=== PATIENT | female | born 1950 | race Caucasian/White ===

== ENCOUNTER 2020-01-12 10:22 | Outpatient (REF) | payer MEDICARE, SELFPAY | END 2020-01-12 10:42 | LOC: LBN 10:22 | PROVIDERS: Visit Provider Physician Assistant | DX: N39.0 Urinary tract infection, site not specified (principal) | CPT/HCPCS: 87077; 87086; 87186 ==

== ENCOUNTER 2021-08-27 17:05 | Outpatient (REF) | payer MEDICARE, SELFPAY | END 2021-08-27 17:06 | disposition home or self-care (01) | LOC: LBN 17:05 | PROVIDERS: Visit Provider Family Medicine | DX: R31.9 Hematuria, unspecified (principal) | CPT/HCPCS: 87086 ==

== ENCOUNTER 2022-11-27 00:30 | Outpatient (CLI) | payer MEDICARE, SELFPAY ==
--- NOTE | 2022-11-27 06:30 | DI.RAD_ITS ---
Exam(s) XR KNEE LT 3V AP,LAT,GILL EXAM: XR KNEE LT 3V AP,LAT,GILL CLINICAL HISTORY: increasing lt knee pain, m25.562. TECHNIQUE: 2D digital imaging was performed. Three views. COMPARISON: No exams were available for comparison FINDINGS: BONES: No acute fracture is present. No bony destructive lesion is seen. Enthesophyte superior mayank e of the patella. JOINTS: The knee is normally aligned. No joint effusion is seen. Joint spaces are maintained. Mini mal periarticular spurring. SOFT TISSUE: Medial varicosities. IMPRESSION: Mild degenerative changes. DATA REPOSITORY: RADIATION DOSE DELIVERED:
== END 2022-11-27 00:50 ==
LOC: DI 00:31
PROVIDERS: PCP Nurse Practitioner Family; Visit Provider Nurse Practitioner Family
DX: M17.12 Unilateral primary osteoarthritis, left knee (principal)
CPT/HCPCS: 73562

== ENCOUNTER 2023-07-06 04:49 | Outpatient (CLI) | payer MEDICARE, SELFPAY ==
[2023-07-06 12:52] LABS: ALT 32 U/L (14-59); AST 19 U/L (15-37); Albumin 3.4 g/dL (3.4-5.0); Alkaline Phosphatase 107 U/L (46-116); Anion Gap 4.1 mmol/L (3-11); BUN 18 mg/dL (7-18); Bilirubin, Total 0.5 mg/dL (0.2-1.0); CO2 32.9 mmol/L (21.0-32.0); CREATININE 0.8 mg/dL (0.55-1.02); Calcium 9.6 mg/dL (8.5-10.1); Calculated LDL 105 mg/dL (<100); Chloride 103 mmol/L (98-107); Cholesterol 179 mg/dL (<200); Estimated GFR 76.79 (mL/min/1.73m2); Glucose 103 mg/dL (74-106); HDL Cholesterol 56 mg/dL (40-60); Potassium 3.3 mmol/L (3.5-5.1); Sodium 140 mmol/L (136-145); Total Protein 7.7 g/dL (6.4-8.2); Triglyceride 93 mg/dL (<150)
== END 2023-07-06 04:50 | disposition home or self-care (01) ==
LOC: LOS 04:49
PROVIDERS: PCP Nurse Practitioner Family; Visit Provider Nurse Practitioner Family
DX: E78.2 Mixed hyperlipidemia (principal)
CPT/HCPCS: 36415; 80053; 80061

== ENCOUNTER → 2023-08-02 04:18 | Outpatient (CLI) | payer MEDICARE, SELFPAY ==
--- NOTE | 2023-08-02 08:30 | DI.DEXA_ITS ---
Exam(s) XR DEXA BONE DENSITY W/WO SANDRINE EXAM: XR DEXA BONE DENSITY W/WO SANDRINE CLINICAL HISTORY: screening for osteoporosis, POSTMENOPAUSAL STATUS, Z78.0 TECHNIQUE: COMPARISON: No exams were available for comparison FINDINGS: Lateral Spine Image: Unremarkable. No compression deformities identified. Left hip: Total T-Score: -1.4 Total Z-Score: 0.4 T- and Z-scores: Findings are consistent with osteopenia. Lumbar Spine: Total T-Score: -1.4 Total Z-Score: 1.1 T- and Z-scores: Findings are consistent with osteopenia. There is osteoporosis in the left forearm with a total T-score of -3.0 and a Z-score of -0.5. IMPRESSION: Osteoporosis in the left forearm.
== END ==
PROVIDERS: PCP Nurse Practitioner Family; Visit Provider Nurse Practitioner Family
DX: Z78.0 Asymptomatic menopausal state (principal); Z13.820 Encounter for screening for osteoporosis
CPT/HCPCS: 77080

== ENCOUNTER 2023-08-27 11:48 | Outpatient (REF) | payer MEDICARE, SELFPAY ==
[2023-08-27 14:07] LABS: Potassium 3.6 mmol/L (3.5-5.1)
== END 2023-08-27 11:49 | disposition home or self-care (01) ==
LOC: LBN 11:48
PROVIDERS: PCP Nurse Practitioner Family; Visit Provider Nurse Practitioner Family
DX: E87.6 Hypokalemia (principal)
CPT/HCPCS: 84132

== ENCOUNTER 2024-07-04 21:04 | Outpatient (REF) | payer MEDICARE, SELFPAY ==
[2024-07-04 21:44] LABS: ALT 45 U/L (14-59); AST 25 U/L (15-37); Albumin 3.7 g/dL (3.4-5.0); Alkaline Phosphatase 146 U/L (46-116); Anion Gap 9.6 mmol/L (3-11); BUN 24 mg/dL (7-18); Bilirubin, Total 0.46 mg/dL (0.2-1.0); CO2 27.4 mmol/L (21.0-32.0); CREATININE 0.9 mg/dL (0.55-1.02); Calcium 9.7 mg/dL (8.5-10.1); Calculated LDL 120 mg/dL (<100); Chloride 100 mmol/L (98-107); Cholesterol 204 mg/dL (<200); Estimated GFR 66.26 (mL/min/1.73m2); Glucose 115 mg/dL (74-106); HDL Cholesterol 55 mg/dL (40-60); Potassium 3.3 mmol/L (3.5-5.1); Sodium 137 mmol/L (136-145); Total Protein 7.4 g/dL (6.4-8.2); Triglyceride 147 mg/dL (<150)
[2024-07-05 21:58] LABS: HIV-1/2 Ag & Ab Screen Negative (Negative)
[2024-07-05 22:01] LABS: Hepatitis C Ab w Rflx HCV PCR Negative (Negative)
[2024-07-05 22:06] LABS: HBs Antibody, Quant <3.1 mIU/mL (See Note); Hep B Surface Ab Negative (See Note); Hepatitis B Core Antibody Negative (Negative); Hepatitis B Surface Antigen Negative (Negative)
== END 2024-07-04 21:05 | disposition home or self-care (01) ==
LOC: LBN 21:04
PROVIDERS: PCP Nurse Practitioner Family; Visit Provider Nurse Practitioner Family
DX: Z11.4 Encounter for screening for human immunodeficiency virus [HIV] (principal); Z11.59 Encounter for screening for other viral diseases; E78.2 Mixed hyperlipidemia
CPT/HCPCS: 80053; 80061; 86704; 86706; 86803; 87340; 87389